=== PATIENT | female | born 1985 | race African-American/Black ===

== ENCOUNTER → 2016-06-02 | Day surgery (SDC) | payer OTHER | END | disposition home or self-care (01) | LOC: JRADIR 10:17 | PROVIDERS: ATTEND Obstetrics & Gynecology Reproductive Endocrinology | PROC: BU12YZZ Fluoroscopy of Bilateral Fallopian Tubes using Other Contrast (ICD-10-PCS; principal; 2016-06-02) | DX: N97.9 Female infertility, unspecified (principal) | CPT/HCPCS: 58340; 74740-TC; 76000-TC; 84703; Q9967 ==

== ENCOUNTER 2016-10-23 09:25 | Emergency (ER) | payer OTHER ==
[2016-10-23 09:35] VITALS: BMI 27.4
--- NOTE | 2016-10-23 10:09 | PDOC ---
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 Ahn presents with fall. The patient was looking for her dog when she slipped on the grass and hit her left knee on the ground and suddenly fell on her buttocks. Denies abdominal pain or vaginal bleeding. Sustained approximately 3 cm linear superficial laceration. Denies metal object. Believes that she received a tetanus vaccination in college. Came for evaluation. Past History - Past Medical History Allergies/Adverse Reactions: Allergies Allergy/AdvReac Type Severity Reaction Status Date / Time fish derived Allergy Intermediate Vomiting, Verified 10/23/16 09:28 hives Home Medications: Ambulatory Orders Pnv No.122/Iron/Folic Acid [ Multi Tablet] 1 each PO DAILY 10/23/16 Other medical history: 22 WKS AOG - Reproductive History Is Patient Now?: Yes (22 wks aog per patient) - Psycho/Social/Smoking Cessation Hx Anxiety: No Suicidal Ideation: No Smoking History: Never smoked Information on smoking cessation initiated: No Hx Alcohol Use: No Drug/Substance Use Hx: No Substance Use Type: None Review of Systems - Review of Systems Able to Perform ROS?: Yes Comments:: 10/23/16 10:34 GENERAL/CONSTITUTIONAL: No fever, weakness. HEAD, EYES, EARS, NOSE AND THROAT: No change in vision. No ear pain or discharge. No sore throat. CARDIOVASCULAR: No chest pain or shortness of breath. RESPIRATORY: No cough, wheezing, or hemoptysis. GASTROINTESTINAL: No abdominal pain, nausea, vomiting, diarrhea, or decreased PO intolerance. GENITOURINARY: No dysuria, frequency, or change in urination. MUSCULOSKELETAL: No joint or muscle swelling or pain. No neck or back pain. SKIN: +laceration NEUROLOGIC: No headache, vertigo, loss of consciousness, or change in strength/ sensation. ENDOCRINE: No increased thirst. No abnormal weight change. HEMATOLOGIC/LYMPHATIC: No anemia, easy bleeding, or history of blood clots. ALLERGIC/IMMUNOLOGIC: No hives or skin allergy. *Physical Exam - Vital Signs Last Vital Signs Temp Pulse Resp BP Pulse Ox 98.3 F 97 H 18 115/74 98 10/23/16 09:25 10/23/16 09:25 10/23/16 09:25 10/23/16 09:25 10/23/16 09:25 - Physical Exam Comments: 10/23/16 10:34 GENERAL: Awake, alert, and fully oriented, in no acute distress. HEAD: No signs of trauma EYES: PERRLA, EOMI, sclera anicteric, conjunctiva clear ENT: Auricles normal inspection, hearing grossly normal, nares patent, oropharynx clear without exudates. NECK: Normal ROM, supple, no lymphadenopathy, JVD, or masses LUNGS: Breath sounds equal, clear to auscultation bilaterally. No wheezes, and no crackles HEART: Regular rate and rhythm, normal S1 and S2, no murmurs, rubs or gallops ABDOMEN: +gravid. Soft, nontender, normoactive bowel sounds. No guarding, no rebound. No masses EXTREMITIES: Normal range of motion, no edema. No clubbing or cyanosis. No cords, erythema, or tenderness NEUROLOGICAL: Cranial nerves II through XII grossly intact. Normal speech, normal gait SKIN: Warm, Dry, normal turgor, no rashes or lesions noted. ~3 cm superficial linear laceration interior to the left anterior knee. No tendon exposure. Full flexion and extension of left knee. Sensation intact throughout. Procedures - Laceration/Wound Repair Left Leg Wound Length: 2.6 to 5.0 cm Wound Explored: clean Wound's Depth, Shape: superficial Irrigated w/ Saline: Yes Anesthesia: 1% Lidocaine Amount of Anesthetic (ccs): 1 Wound Debrided: minimal Wound Repaired With: Sutures Suture Size/Type: 4:0 Number of Sutures: 4 Layer Closure: No Medical Decision Making - Medical Decision Making 10/23/16 10:35 Wound was irrigated with 5 mL of sterile water. Approximate one cc of 1% lidocaine without epinephrine used for local pain control. Local anesthesia achieved. 4 4-0 nylon interrupted sutures placed with excellent approximation. Scar and wound precautions were given. Wound was covered with bacitracin and gauze. An checked patient to return to the ED or to her doctor in 7-10 days for suture removal. Patient verbalized understands plan. Given her fall and then the buttocks and greater than 20 weeks , I advised that the patient should follow with a heart monitoring. I had spoken to the nurse at labor and delivery at [place]. They are aware and will accept her for heart monitoring. The patient has no abdominal pain or vaginal bleeding. We'll have her drive the patient over to labor and delivery. Return precautions given. *DC/Admit/Observation/Transfer Diagnosis at time of Disposition: Fall Qualifiers: Encounter type: initial encounter Qualified Code(s): W19.XXXA - Unspecified fall, initial encounter - Discharge Dispostion Disposition: HOME Condition at time of disposition: Stable Admit: No - Patient Instructions Printed Discharge Instructions: DI for Laceration Repair -- Simple Additional Instructions: 10/23/16 10:06 You have 4 sutures in placed from your fall. These sutures will need to be removed in 7 to 10 days. Elevate the leg as much as you can to decrease the swelling. 650 mg tylenol every 4 hours as needed for pain. You may apply a thin layer of bacitracin every 12 hours for the next 2 to 3 days. Cover with gauze or bandage. You may return to the ER or go to your doctor for suture removal. If you notice any redness or swelling, please return to the ER for further evaluation. I had spoken with the labor and delivery at [facility]. Please go directly to the 3rd floor to labor and delivery. They are aware that you are coming for heart monitoring.
[2016-10-23 11:42] VITALS: BP 98/63; PULSE 86; TEMP 98.4
== END 2016-10-23 10:18 | disposition home or self-care (01) ==
LOC: FER 09:25
PROC: 0HQLXZZ Repair Left Lower Leg Skin, External Approach (ICD-10-PCS; principal; 2016-10-23)
DX: O26.892 Other specified pregnancy related conditions, second trimester (principal); Z3A.22 22 weeks gestation of pregnancy; S81.012A Laceration without foreign body, left knee, initial encounter; W18.30XA Fall on same level, unspecified, initial encounter; Y93.89 Activity, other specified; Y92.89 Other specified places as the place of occurrence of the external cause
CPT/HCPCS: 12002-25; 99284-25

== ENCOUNTER 2016-11-06 12:25 | Emergency (ER) | payer OTHER ==
--- NOTE | 2016-11-06 12:30 | PDOC ---
Suture Removal/Wound Check HPI - History of Present Illness Chief Complaint: Suture/Staple Removal(Here) Stated Complaint: LEFT KNEE SUTURE REMOVAL Time Seen by Provider: 11/06/16 12:30 History Source: Yes: Patient Exam Limitations: Yes: No Limitations Treated at: [facility] ED Date of Last ED visit: 10/23/16 - Previous ED Treatment Type of procedure performed on last visit: Yes: Laceration Repair Tetanus Immunization: Yes: Up to Date - Onset of Previous Treatment Date of Occurence: 10/23/16 Option to Enter number here: 14 Select one - (for the option above): Days Timing/Duration/Severity of Onset: reports: Prior to presentation Comment:: 31 yo F currently in second trimester of her presents for suture removal. She presented a few days ago to have it evaluated, but was told the wound was not healed enough yet, to wait a few more days. She denies any pain, fever, drainage from the wound. No other injuries. She has been applying neosporin. Past History - Past Medical History Allergies/Adverse Reactions: Allergies fish derived Allergy (Intermediate, Verified 11/06/16 14:18) Vomiting, hives Home Medications: Ambulatory Orders Pnv No.122/Iron/Folic Acid [ Multi Tablet] 1 each PO DAILY 10/23/16 - Social History Smoking Status: Never smoked Suture Removal/Wound Check PE - Physical Exam Comments: GENERAL: Awake, alert, and fully oriented, in no acute distress EXTREMITIES: R knee with healing laceration, sutures in place. Wound is dry and intact. No drainage. Normal range of motion, no edema. SKIN: Warm, Dry, normal turgor, no rashes or lesions noted. *Review of Systems - Review of Systems Able to Perform ROS?: Yes Comments:: GENERAL/CONSTITUTIONAL: No fever or chills. No weakness. HEAD, EYES, EARS, NOSE AND THROAT: No change in vision. No ear pain or discharge. No sore throat. MUSCULOSKELETAL: No joint or muscle swelling or pain. No neck or back pain. SKIN: No rash Procedures - Additional Procedures Additional Procedures: other Progress: Removed 4 sutures without complication. Steri-strips placed. *DC/Admit/Observation/Transfer Diagnosis at time of Disposition: Encounter for removal of sutures - Discharge Dispostion Disposition: HOME Condition at time of disposition: Stable Admit: No - Patient Instructions Printed Discharge Instructions: [facility]VA for Suture Removal
[2016-11-06 12:33] VITALS: BP 105/71; PULSE 87; TEMP 98.1; BMI 28.1
== END 2016-11-06 12:45 | disposition home or self-care (01) ==
LOC: FER 12:25
DX: Z48.02 Encounter for removal of sutures (principal)
CPT/HCPCS: 99282-25

== ENCOUNTER 2017-01-03 00:45 | Emergency (ER) | payer OTHER ==
[2017-01-03 00:54] VITALS: BP 117/77; PULSE 93; TEMP 98.5; BMI 29.9
--- NOTE | 2017-01-03 01:09 | PDOC ---
History of Present Illness - General Chief Complaint: Itching Stated Complaint: ITCHING ON HANDS AND FEET Time Seen by Provider: 01/03/17 00:54 History Source: Patient Exam Limitations: No Limitations - History of Present Illness Initial Comments: 01/03/17 01:03 This patient is a 31 yo F who is 32 weeks She presents to the ER with a complaint of itching Pt states that her hands and feet have been itching over the past 4 days She denies pain in her abdomen, vaginal bleeding She denies chest pain, shortness of breath, palpitations She has not had this prior She attempted to contact her well services operator who did not respond She has been googling Cholestasis and believes this is the cause of her No change in diet PMH: denies PSH: denies Meds: denies ALL: Fish Social: denies alcohol, drug, cigarette use GENERAL/CONSTITUTIONAL: No: fever, chills, weakness, loss of appetite. HEAD, EYES, EARS, NOSE AND THROAT: No: change in vision, ear pain, discharge, sore throat, throat swelling. CARDIOVASCULAR: No: chest pain, lightheadedness, palpitations, syncope RESPIRATORY: No: cough, shortness of breath, wheezing, hemoptysis, stridor. GASTROINTESTINAL: No: nausea, vomiting, diarrhea, abdominal cramping, rectal bleeding, constipation. GENITOURINARY: No: dysuria, hematuria, frequency, urgency, flank pain. MUSCULOSKELETAL: No: back pain, neck pain, joint pain, muscle swelling or pain SKIN : Yes: pruritis No: lesions, pallor, rash or easy bruising. NEUROLOGIC: No: headache, vertigo, paresthesias, weakness ENDOCRINE: No: unexplained weight gain or loss HEMATOLOGIC/LYMPHATIC: No: anemia, easy bleeding, swelling nodes. GENERAL: The patient is in no acute distress. HEAD: Normal with no signs of trauma. EYES: PERRLA, EOMI, sclera anicteric, conjunctiva clear. ENT: Ears normal, nares patent, oropharynx clear without exudates. Moist mucous membranes. NECK: Normal range of motion, supple without lymphadenopathy, JVD, or masses. LUNGS: Breath sounds equal, clear to auscultation bilaterally. No wheezes, and no crackles. HEART: Regular rate and rhythm, normal S1 and S2 without murmur, rub or gallop. ABDOMEN: Soft, nontender, normoactive bowel sounds. No guarding, no rebound. No masses palpable. EXTREMITIES: Normal range of motion, no edema. No clubbing or cyanosis. No erythema, or tenderness. NEUROLOGICAL: Cranial nerves II through XII grossly intact. Normal speech. No focal neurological deficits. MUSCULOSKELETAL: Back non-tender to palpation, no CVA tenderness SKIN: (+) erythema of the hands and feet due to pruritis, no lesions noted 01/03/17 01:25 01/03/17 01:28 01/03/17 02:01 Past History - Past Medical History Allergies/Adverse Reactions: Allergies Allergy/AdvReac Type Severity Reaction Status Date / Time fish derived Allergy Intermediate Vomiting, Verified 11/06/16 14:18 hives Home Medications: Ambulatory Orders Pnv No.122/Iron/Folic Acid [ Multi Tablet] 1 each PO DAILY 10/23/16 Other medical history: 32 WEEKS - Psycho/Social/Smoking Cessation Hx Anxiety: No Suicidal Ideation: No Smoking History: Never smoked Hx Alcohol Use: No Drug/Substance Use Hx: No Substance Use Type: None *Physical Exam - Vital Signs Last Vital Signs Temp Pulse Resp BP Pulse Ox 98.5 F 93 H 18 117/77 99 01/03/17 00:51 01/03/17 00:51 01/03/17 00:51 01/03/17 00:51 01/03/17 00:51 ED Treatment Course - LABORATORY CBC & Chemistry Diagram: 01/03/17 01:15 01/03/17 01:15 Medical Decision Making - Medical Decision Making 01/03/17 01:29 Will do labs Will attempt to contact well services operator 01/03/17 02:02 Pt vitals: Selected Entries 01/03/17 00:51 Temperature 98.5 F Pulse Rate 93 H Respiratory 18 Rate Blood Pressure 117/77 O2 Sat by Pulse 99 Oximetry (%) 01/03/17 02:02 01/03/17 02:22 Laboratory Tests 01/03/17 01:15 WBC 11.3 H Hgb 12.6 Hct 37.2 Plt Count 180 01/03/17 02:34 Laboratory Tests 01/03/17 00:51 Urine Blood Negative Urine Nitrite Negative Ur Leukocyte Esterase Negative 01/03/17 02:57 Laboratory Tests 01/03/17 01:15 Sodium 137 Potassium 3.6 Chloride 101 Carbon Dioxide 25 Anion Gap 11 BUN 10 Creatinine 0.7 Random Glucose 93 Total Bilirubin 0.2 AST 19 ALT 27 Alkaline Phosphatase 98 Albumin 2.9 L 01/03/17 02:[address] Ahn 01/03/17 03:31 No response Pt would like to go home Will discharge to home *DC/Admit/Observation/Transfer Diagnosis at time of Disposition: Itching - Discharge Dispostion Disposition: HOME Condition at time of disposition: Stable Admit: No - Referrals Referrals: Yosef Ahn MD [Primary Care Provider] - - Patient Instructions Printed Discharge Instructions: DI for Itching Additional Instructions: Thank you for coming in to the ER Please follow up with your primary well services operator I have attempted to reach him but I did not receive a call back Please return to the ER for any other concerns or complaints
[2017-01-03 02:19] LABS: BASOPHIL 0.3 % (0-2.0); EOSINOPHIL 2.5 % (0-4.5); MCH 31.5 pg (25.7-33.7); MCHC 33.9 g/dl (32.0-36.0); MEAN CELL VOLUME 92.9 fl (80-96); NEUTROPHILS 64.7 % (42.8-82.8); PLATELET COUNT 180 K/MM3 (134-434); RDW 13.1 % (11.6-15.6); WHITE BLOOD COUNT 11.3 K/mm3 (4.0-10.0)
[2017-01-03 02:23] LABS: URINE APPEARANCE CLOUDY; URINE BILIRUBIN NEGATIVE (NEGATIVE); URINE BLOOD NEGATIVE (NEGATIVE); URINE COLOR LTYELLOW; URINE GLUCOSE (UA) NEGATIVE (NEGATIVE); URINE KETONE NEGATIVE (NEGATIVE); URINE LEUK ESTERASE NEGATIVE (NEGATIVE); URINE NITRITE NEGATIVE (NEGATIVE); URINE PROTEIN NEGATIVE (NEGATIVE); URINE UROBILINOGEN NEGATIVE mg/dL (0.2-1.0)
[2017-01-03 02:47] LABS: ALBUMIN 2.9 g/dl (3.4-5.0); ANION GAP 11 (8-16); BILIRUBIN,TOTAL 0.2 mg/dL (0.2-1.0); CALCIUM 9.2 mg/dL (8.5-10.1); CO2 25 mmol/L (21-32); CREATININE 0.7 mg/dL (0.55-1.02); GLUCOSE,RANDOM 93 mg/dL (74-106); SGOT/AST 19 U/L (15-37); SGPT/ALT 27 U/L (12-78); TOT PROT 6.4 g/dl (6.4-8.2)
[2017-01-03 02:48] LABS: ALK PHOS 98 U/L (45-117)
--- NOTE | 2017-03-03 16:57 | PATH ---
Surgical Pathology Report Patient Name: LEANN ALEXANDER Med. Rec. #: [id number] /Age/Gender: 1985 (Age: 31) / F Account: [id number] Location: [facility] R Taken: 02/23/2017 Received: 02/24/2017 Reported: 03/03/2017 Physicians: Yosef Ahn M.D. Specimen(s) Received PLACENTA Clinical History , 39.4 weeks transverse lie, primary IA x2 Final Diagnosis PLACENTA, PRIMARY SECTION: THIRD TRIMESTER PLACENTA (502 g) WITH TRIVASCULAR UMBILICAL CORD AND UNREMARKABLE PLACENTAL MEMBRANES. Electronically Signed Alla Bay M.D. Gross Description The specimen is received fresh labeled placenta and is a 502 gram, 20.0 x 19.0 x 2.2 cm. placenta with attached membranes and umbilical cord. The attached membranes are ramirez, translucent with focal opacities and insert marginally. The umbilical cord measures 30 cm. in length and averages 1.4 cm. in diameter. The cord inserts centrally. No true knots or strictures are identified. Cut surface of the umbilical cord reveals 3 vessels. The surface is oleary-blue with minimal fibrin deposition and appropriate caliber vessels. The maternal surface is red-brown with focal defects. Sectioning reveals red-brown, spongy parenchyma. No lesions are identified. Brick Mason sections are submitted in three cassettes as follows: 1- membrane rolls and umbilical cord; 2-3- full thickness sections of placenta. 02/26/2017 [facility]02/26/2017
== END 2017-01-03 03:36 | disposition home or self-care (01) ==
LOC: FER 00:45
DX: O26.893 Other specified pregnancy related conditions, third trimester (principal); L29.9 Pruritus, unspecified; Z3A.32 32 weeks gestation of pregnancy
CPT/HCPCS: 36415; 80053; 81003; 85025; 87086; 88307-TC; 99281-25

== ENCOUNTER 2017-02-23 07:35 | Inpatient (IN) | payer OTHER ==
[~2017-02-23 07:35] MED LIST: CITRIC ACID/SODIUM CITRATE 30 ML UNIT-DOSE CUP PO ONE; ELECTROLYTE-148 SOLN 1,000 ML IV SCH
[2017-02-23] MEDS ORDERED: ELECTROLYTE-148 SOLN 1,000 ML IV SCH (08:05)
[2017-02-23 08:25] VITALS: BMI 32.9
[2017-02-23] MEDS ORDERED: TUBERCULIN PPD 5 TU/0.1ML SYRINGE (IN PATIENT USE ONLY) ID ONE (09:00)
--- NOTE | 2017-02-23 09:20 | HP ---
Past Medical History - Primary Care Physician PCP:: Yosef Ahn - Admission Chief Complaint: 39 weeks, transverse lie, for c/s History of Present Illness: 31 yo f 39 weeks, with hx of transverse lie confirmed by bed side sono for c/s, rba discussed, fhr cat 1, cx clp History Source: Patient Limitations to Obtaining History: No Limitations - Past Medical History ...: 3 ...Para: 0 ...Term: 0 ...: 0 ...Spon : 0 ...Induced : 0 ...Multiple Gestation: 0 ...LMP: 05/24/16 ... Weeks Gestation by Dates: 39.2 ...EDC by Dates: 02/28/17 ...EDC by Sono: 02/26/17 - Past Surgical History Hx Myomectomy: No Hx Transabdominal Cerclage: No - Smoking History Smoking history: Never smoked Have you smoked in the past 12 months: No - Alcohol/Substance Use Hx Alcohol Use: No - Social History Usual Living Arrangement: Yes: With Spouse History of Recent Travel: No Home Medications - Allergies Allergies/Adverse Reactions: Allergies Allergy/AdvReac Type Severity Reaction Status Date / Time fish derived Allergy Intermediate Vomiting, Verified 11/06/16 14:18 hives No Known Drug Allergies Allergy Verified 02/23/17 08:14 - Home Medications Home Medications: Ambulatory Orders Pnv No.122/Iron/Folic Acid [ Multi Tablet] 1 each PO DAILY 10/23/16 Review of Systems - Review of Systems Constitutional: reports: No Symptoms Eyes: reports: No Symptoms HENT: reports: No Symptoms Neck: reports: No Symptoms Cardiovascular: reports: No Symptoms Respiratory: reports: No Symptoms Gastrointestinal: reports: No Symptoms Genitourinary: reports: No Symptoms Breasts: reports: No Symptoms Reported Musculoskeletal: reports: No Symptoms Integumentary: reports: No Symptoms Neurological: reports: No Symptoms Endocrine: reports: No Symptoms Hematology/Lymphatic: reports: No Symptoms Psychiatric: reports: No Symptoms Physical Exam - Maternity Vital Signs: Vital Signs Temperature 98.1 F 02/23/17 07:35 Pulse Rate 90 02/23/17 07:35 Respiratory Rate 18 02/23/17 07:35 Blood Pressure 122/65 02/23/17 07:35 O2 Sat by Pulse Oximetry (%) Constitutional: Yes: Well Nourished, No Distress, Calm Eyes: Yes: WNL, Conjunctiva Clear, EOM Intact HENT: Yes: WNL, Atraumatic, Normocephalic Neck: Yes: WNL, Supple, Trachea Midline Cardiovascular: Yes: WNL, Regular Rate and Rhythm Breast(s): Yes: WNL - Abdominal Exam/OB Fundal Height: 38 Number of Fetuses: Single Presentation: Vertex Contractions: Yes Regularity: Irritability Intensity: Unaware Heart Rate Location: RUQ Category: I Accelerations: Uniform Decelerations: None - Vaginal Exam/OB Vaginal Bleediing: No Speculum Exam: No Dilatation (cm): closed Effacement (%): 0 Amniotic Membrane Status: Intact Station: -4 - Physical Exam Musculoskeletal: Yes: Back Pain Edema: Yes Edema: LLE: Trace, RLE: Trace Deep Tendon Reflex Grade: Normal +2 Psychiatric: Yes: WNL Hemorrhage Risk Assessment - Risk Factors Medium Risk Factors: Yes: None High Risk Factors: Yes: None Risk Score: 1 Risk Level: Medium Risk Problem List - Problems (1) with 39 completed weeks gestation Code(s): Z3A.39 - 39 WEEKS GESTATION OF (2) Transverse lie, antepartum Code(s): O32.2XX0 - MATERNAL CARE FOR TRANSVERSE AND OBLIQUE LIE, UNSP Qualifiers: Fetus number: single or unspecified fetus Qualified Code(s): O32.2XX0 - Maternal care for transverse and oblique lie, not applicable or unspecified; O32.2XX0 - Maternal care for transverse and oblique lie, not applicable or unspecified Assessment/Plan c/s , rba discussed
[2017-02-23] MEDS ORDERED: ONDANSETRON 4 MG/2 ML VIAL IVPB PRN (09:27)
[2017-02-23] MEDS ORDERED: oxyCODONE HCL 5 MG TABLET PO PRN (10:24)
[2017-02-23] MEDS ORDERED: diphenhydrAMINE HCL 25 MG CAPSULE (FP) PO PRN (10:24)
[2017-02-23] MEDS ORDERED: WITCH HAZEL 50% (TUCKS) 40 PAD/JAR PAD TP PRN (10:24)
[2017-02-23] MEDS ORDERED: BENZOCAINE 20% 57 GM BOTTLE TP PRN (10:24)
[2017-02-23] MEDS ORDERED: BENZOCAINE 28 GM HEMORRHOIDAL OINTMENT PR PRN (10:24)
[2017-02-23] MEDS ORDERED: METHYLERGONOVINE MALEATE 0.2 MG/1 ML AMP IM PRN (10:24)
[2017-02-23] MEDS ORDERED: IBUPROFEN 600 MG TABLET (FP) PO PRN (10:24)
[2017-02-23] MEDS ORDERED: OXYTOCIN 20 UNITS in 0.9% NS 1,000 ML IV SCH (10:30)
[2017-02-23] MEDS: ACETAMINOPHEN 1000 MG/100 ML VIAL (NON FORMULARY) IVPB PRN ×2 (10:50→20:54)
[2017-02-23] MEDS ORDERED: MEPERIDINE HCL CARPU-JECT 50 MG/1 ML DISP.SYRIN IVPUSH PRN (11:13)
[2017-02-23] MEDS ORDERED: IBUPROFEN 800 MG/8 ML IJ IVPB ONE (11:13)
[2017-02-23] MEDS: IBUPROFEN 800 MG/8 ML IJ IVPB PRN ×2 (11:15→16:48)
[2017-02-23] MEDS ORDERED: morphine CARPU-JECT 2 MG/1 ML DISP.SYRIN IVPB ONE (14:45)
[2017-02-23] MEDS ORDERED: DEXTROSE 5%-WATER - 50 ML IVPB ONE (18:03)
[2017-02-23] MEDS ORDERED: ceFAZolin SODIUM 1 GM VIAL ONE (18:03)
[2017-02-23] MEDS: CEFAZOLIN 1 GM in DEXTROSE 5%-WATER - 50 ML IVPB SCH (18:11)
[2017-02-23] MEDS ORDERED: DEXTROSE 5%-LACTATED RINGERS 1,000 ML IV SCH (18:30)
--- NOTE | 2017-02-23 21:06 | OP ---
DATE OF OPERATION: 02/23/2017 PREOPERATIVE DIAGNOSIS: at 39 weeks, transverse lay. POSTOPERATIVE DIAGNOSIS: at 39 weeks, transverse lay. PROCEDURE: Primary low segment transverse section. SURGEON: Yosef Nowak MD WINDROWER OPERATOR: Derek Booker MD ANESTHESIA: Spinal anesthesia. ANESTHESIOLOGIST: Jose Madison MD ESTIMATED BLOOD LOSS: 700 mL. FINDINGS: Live baby boy. 's 9 and 9. Right shoulder anterior. Delivered at the vertex. OPERATION: The patient was taken to the operating room and underwent spinal anesthesia. Abdomen and perineum were prepped and draped. Pfannenstiel abdominal skin incision was made. Abdominal wall was cut layer by layer. Anterior peritoneum was exposed and incised. At that point in the abdominal cavity, the lower uterine segment was identified and uterovesical was followed along the peritoneum and the bladder was pushed down. With the lower blade of the retractor placed in the pelvis, a low transverse incision was made. Incision was extended laterally. Amniotic sac was entered. Clear fluid. Baby was in transverse position with head to the right of the mother, which was rotated and delivered at the vertex. Live baby boy was delivered without any difficulty. Placenta was delivered manually. Uterine cavity was cleaned of all remaining tissue. Uterine incision was closed in 2 layers; first layer with 0 Biosyn continuous suture and the 2nd layer with 0 Biosyn imbricating the first layer. Bladder flap was closed with 0 Biosyn continuous suture. There were several areas of bleeding at the incision site, which hemostasis was established with [id number] Biosyn suture. Both tubes and ovaries were normal. Pelvic cavity was several times irrigated and then all of the lap, sponge, and instrument counts were correct. The peritoneum was closed with 0 Biosyn continuous suture. Muscles were brought together with interrupted sutures of 0 Biosyn. Fascia was closed with 0 Biosyn continuous sutures, subcutaneous fat with interrupted suture of 0 Biosyn, and the skin was closed with 3-0 Vicryl subcuticular suture. Patient tolerated the procedure well and left the OR in good condition. YOSEF NOWAK M.D. [id number]
[2017-02-24] MEDS ORDERED: ceFAZolin SODIUM 1 GM VIAL ONE (01:18)
[2017-02-24] MEDS ORDERED: DEXTROSE 5%-WATER - 50 ML IVPB ONE (01:18)
[2017-02-24] MEDS: CEFAZOLIN 1 GM in DEXTROSE 5%-WATER - 50 ML IVPB SCH (01:23)
[2017-02-24] MEDS: ACETAMINOPHEN 325 MG TABLET (FP) PO PRN ×4 (01:50→21:29)
[2017-02-24] MEDS: IBUPROFEN 600 MG TABLET (FP) PO PRN ×5 (01:50→21:28)
--- NOTE | 2017-02-24 08:31 | PN ---
Post Progress Note - Subjective Subjective: Pt complaints of mild incision pain Post Day: 1 Type of Delivery: Primary C/S Vital Signs: Vital Signs Temperature 98.9 F 02/24/17 06:00 Pulse Rate 87 02/24/17 06:00 Respiratory Rate 18 02/24/17 06:00 Blood Pressure 109/61 02/24/17 06:00 O2 Sat by Pulse Oximetry (%) 100 02/23/17 11:25 Breast Exam: Yes: Soft Uterus: Yes: Fundus Firm, Fundus below umbilicus Incision: Yes: Dressing dry and intact Abdomen/GI: Yes: Abdomen soft, Tolerating PO Lochia: Yes: Rubra Lochia, amount: Small Extremities: Yes: Calves non-tender Perineum: Yes: Intact Activity: Ambulating Assessment/Plan 31yo P1 s/p primary LT C/S, doing well stable, afebrile. care instructions reviewed. Continue routine postop care. Ambulation encouraged
[2017-02-24 08:54] LABS: BASOPHIL 0.4 % (0-2.0); EOSINOPHIL 0.9 % (0-4.5); MCH 30.3 pg (25.7-33.7); MCHC 32.4 g/dl (32.0-36.0); MEAN CELL VOLUME 93.6 fl (80-96); MEAN PLT VOLUME 10.8 fl (7.5-11.1); NEUTROPHILS 76.5 % (42.8-82.8); PLATELET COUNT 117 K/MM3 (134-434); RDW 13.9 % (11.6-15.6); WHITE BLOOD COUNT 10.5 K/mm3 (4.0-10.0)
[2017-02-24] MEDS ORDERED: BISACODYL 10 MG SUPP.RECT RC PRN (10:24)
--- NOTE | 2017-02-24 10:36 | PN ---
Progress Note (short form) - Note Progress Note: POD #1 - s/p under spinal anesthesia with duramorph. Pt. doing well, resting comfortably in bed and baby. No complaints. Good pain control. No apparent anesthetic complications noted. Continue current care.
[2017-02-24] MEDS: SIMETHICONE 80 MG TAB.CHEW (FP) PO PRN ×3 (10:46→21:20)
[2017-02-24] MEDS: oxyCODONE HCL 5 MG TABLET PO PRN ×2 (10:46→21:22)
[2017-02-24] MEDS: ENOXAPARIN NA (PORCINE) 40 MG/0.4 ML DISP.SYRIN SQ SCH (10:48)
[2017-02-24] MEDS: SENNOSIDES/DOCUSATE COMBO (SENNA PLUS) TABLET (UD) PO PRN (21:29)
[2017-02-25] MEDS: SIMETHICONE 80 MG TAB.CHEW (FP) PO PRN ×4 (06:24→23:28)
[2017-02-25] MEDS: ACETAMINOPHEN 325 MG TABLET (FP) PO PRN ×2 (06:24→23:27)
[2017-02-25] MEDS: IBUPROFEN 600 MG TABLET (FP) PO PRN ×4 (06:27→23:26)
--- NOTE | 2017-02-25 07:08 | PN ---
Post Progress Note - Subjective Subjective: Patient without acute complaints. Reports tolerating oral intake without nausea or vomiting. Ambulating without dizziness. Denies fevers or chills. Pain well controlled with oral pain medication. without difficulty. Passing flatus. Post Day: 3 Type of Delivery: Primary C/S Vital Signs: Vital Signs Temperature 98.3 F 02/24/17 22:00 Pulse Rate 86 02/24/17 22:00 Respiratory Rate 18 02/24/17 22:00 Blood Pressure 124/70 02/24/17 22:00 O2 Sat by Pulse Oximetry (%) 100 02/23/17 11:25 Breast Exam: Yes: Soft Uterus: Yes: Fundus Firm, Fundus below umbilicus Abdomen/GI: Yes: Abdomen soft, Passing flatus, Tolerating PO. No: Tender Lochia: Yes: Serosa Lochia, amount: Small Extremities: Yes: Calves non-tender Activity: Ambulating - Labs Labs: CBC WBC 10.5 K/mm3 (4.0-10.0) H D 02/24/17 08:30 RBC 3.55 M/mm3 (3.60-5.2) L 02/24/17 08:30 Hgb 10.8 GM/dL (10.7-15.3) D 02/24/17 08:30 Hct 33.2 % (32.4-45.2) 02/24/17 08:30 MCV 93.6 fl (80-96) 02/24/17 08:30 MCH 30.3 pg (25.7-33.7) 02/24/17 08:30 MCHC 32.4 g/dl (32.0-36.0) 02/24/17 08:30 RDW 13.9 % (11.6-15.6) 02/24/17 08:30 Plt Count 117 K/MM3 (134-434) L 02/24/17 08:30 MPV 10.8 fl (7.5-11.1) D 02/24/17 08:30 Neutrophils % 76.5 % (42.8-82.8) D 02/24/17 08:30 Lymphocytes % 16.0 % (8-40) D 02/24/17 08:30 Monocytes % 6.2 % (3.8-10.2) 02/24/17 08:30 Eosinophils % 0.9 % (0-4.5) 02/24/17 08:30 Basophils % 0.4 % (0-2.0) 02/24/17 08:30 Assessment/Plan 31 yo POD # 2 s/p 1 CD, afebrile, vital sign stable, doing well 1. Continue routine postoperative care. 2. Encourage ambulation and incentive spirometer use 3. Continue oral pain medication 4. Anticipate discharge home postoperative day #3 or #4
[2017-02-25] MEDS: oxyCODONE HCL 5 MG TABLET PO PRN ×3 (08:08→17:31)
[2017-02-25] MEDS: ENOXAPARIN NA (PORCINE) 40 MG/0.4 ML DISP.SYRIN SQ SCH (09:15)
[2017-02-25] MEDS ORDERED: DIPHTH,PERTUSS(ACELL),TET 0.5 ML DISP.SYRIN IM ONE (10:00)
[2017-02-25] MEDS ORDERED: FLU VACC QS2017-18 36MOS UP/PF 60 MCG/0.5 ML SYRINGE IM ONE (10:00)
[2017-02-25] MEDS: SENNOSIDES/DOCUSATE COMBO (SENNA PLUS) TABLET (UD) PO PRN (23:28)
[2017-02-26] MEDS: IBUPROFEN 600 MG TABLET (FP) PO PRN ×2 (05:14→10:05)
[2017-02-26] MEDS: ACETAMINOPHEN 325 MG TABLET (FP) PO PRN ×2 (05:15→10:05)
[2017-02-26] MEDS: oxyCODONE HCL 5 MG TABLET PO PRN (05:16)
[2017-02-26] MEDS: SIMETHICONE 80 MG TAB.CHEW (FP) PO PRN ×2 (05:16→10:06)
[2017-02-26 07:36] LABS: BASOPHIL 0.6 % (0-2.0); EOSINOPHIL 3.3 % (0-4.5); MCH 31.1 pg (25.7-33.7); MCHC 33.3 g/dl (32.0-36.0); MEAN CELL VOLUME 93.4 fl (80-96); NEUTROPHILS 69.5 % (42.8-82.8); PLATELET COUNT 147 K/MM3 (134-434); WHITE BLOOD COUNT 9.4 K/mm3 (4.0-10.0)
--- NOTE | 2017-02-26 08:23 | PN ---
Progress Note (short form) - Note Progress Note: pod 3 c/o incisional pain, no excess vaginal bleeding , had BM CBC, BMP 02/26/17 06:00 Last Vital Signs Temp Pulse Resp BP Pulse Ox 97.6 F 87 18 116/60 100 02/25/17 22:00 02/25/17 22:00 02/25/17 22:00 02/25/17 22:00 02/23/17 11:25 abdomen soft, no distension , no cva , incision dry, clean , sutures intact no calf tenderness lochia mild plan pain management, ambulate Problem List - Problems (1) with 39 completed weeks gestation Code(s): Z3A.39 - 39 WEEKS GESTATION OF (2) Transverse lie, antepartum Code(s): O32.2XX0 - MATERNAL CARE FOR TRANSVERSE AND OBLIQUE LIE, UNSP Qualifiers: Fetus number: single or unspecified fetus Qualified Code(s): O32.2XX0 - Maternal care for transverse and oblique lie, not applicable or unspecified; O32.2XX0 - Maternal care for transverse and oblique lie, not applicable or unspecified
[2017-02-26] MEDS: ENOXAPARIN NA (PORCINE) 40 MG/0.4 ML DISP.SYRIN SQ SCH (10:06)
[2017-02-26 10:42] VITALS: BP 122/76; PULSE 89; TEMP 98.1
--- NOTE | 2017-03-02 08:54 | DS ---
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: Vital Signs Temperature 98.1 F 02/26/17 10:00 Pulse Rate 89 02/26/17 10:00 Respiratory Rate 18 02/26/17 10:00 Blood Pressure 122/76 02/26/17 10:00 O2 Sat by Pulse Oximetry (%) 100 02/23/17 11:25 Constitutional: Yes: Well Nourished, No Distress, Calm Eyes: Yes: WNL, Conjunctiva Clear, EOM Intact HENT: Yes: WNL, Atraumatic, Normocephalic Neck: Yes: WNL, Supple, Trachea Midline Cardiovascular: Yes: WNL, Regular Rate and Rhythm Respiratory: Yes: WNL, Regular, CTA Bilaterally Gastrointestinal: Yes: WNL ...Rectal Exam: Yes: WNL Renal/: Yes: WNL ....Post : Yes: Uterus firm, Uterus non-tender, Slight lochia rubra Breast(s): Yes: WNL Musculoskeletal: Yes: WNL Extremities: Yes: WNL Edema: LLE: Trace, RLE: Trace Integumentary: Yes: WNL Wound/Incision: Yes: Clean/Dry, Well Approximated, Sutures Intact Neurological: Yes: WNL, Alert, Oriented ...Motor Strength: WNL Psychiatric: Yes: WNL, Alert, Oriented Labs: CBC, BMP 02/26/17 06:00 Delivery - Delivery Section: Primary (no complication), Low Flap Transverse Type of Anesthesia: Spinal Episiotomy/Laceration: None EBL (cc): 700 Delivery, Single - Stages of Labor Date of Delivery: 02/23/17 Time of Delivery: 09:40 Time Placenta Delivered: 09:42 Placenta: Yes: Manual Removal - Condition of Infant 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 Present: Yes Name: Elba Lopez Gender: Male Weight: 8 lb 13 oz Position: Right, SA Total Hours ROM (Hrs/Mins): 3MIN - 1 Minute Total Score: 9 5 Minutes Total Score: 9 - [place] Feeding Plan Initial Plan: Exclusive throughout hospitalization Discharge Summary Reason For Visit: CSECTION transverse lie Procedures: Principal: primary LST c/s Condition: Good - Instructions Diet, Activity, Other Instructions: regular diet, follow up office 1 week Referrals: Yosef Ahn MD [Staff Physician] - Disposition: HOME - Home Medications Comprehensive Discharge Medication List: Ambulatory Orders Pnv No.122/Iron/Folic Acid [ Multi Tablet] 1 each PO DAILY 10/23/16 Ibuprofen [Motrin -] 600 mg PO QID #28 tablet 02/26/17
== END 2017-02-26 14:10 | disposition home or self-care (01) | DRG 540 ==
LOC: JLDR 07:35 → J3W 11:58
PROVIDERS: ADMIT Obstetrics & Gynecology; ATTEND Obstetrics & Gynecology
PROC: 10D00Z1 Extraction of Products of Conception, Low, Open Approach (ICD-10-PCS; principal; 2017-02-23)
DX: O32.2XX0 Maternal care for transverse and oblique lie, not applicable or unspecified (principal); Z3A.39 39 weeks gestation of pregnancy; Z37.0 Single live birth
CPT/HCPCS: 36415; 85025; 88307-TC; 90686; 90715; G0008

== ENCOUNTER 2018-01-28 05:37 | Day surgery (SDC) | payer OTHER ==
[2018-01-27 11:37] VITALS: BMI 25.5
--- NOTE | 2018-01-28 07:21 | HP ---
Past Medical History - Primary Care Physician PCP:: Yosef Ahn - Admission Chief Complaint: missed History of Present Illness: 32 yo f with 8 weeks iup, missed admitted for suction D&C ,risks discussed with patient History Source: Patient Limitations to Obtaining History: No Limitations - Past Surgical History Hx Myomectomy: No Hx Transabdominal Cerclage: No - Smoking History Smoking history: Former smoker Have you smoked in the past 12 months: No - Alcohol/Substance Use Hx Alcohol Use: Yes (1 glass of wine per day) - Social History Usual Living Arrangement: Yes: With Spouse History of Recent Travel: No Home Medications - Allergies Allergies/Adverse Reactions: Allergies Allergy/AdvReac Type Severity Reaction Status Date / Time fish derived Allergy Intermediate Vomiting, Verified 01/28/18 07:12 hives No Known Drug Allergies Allergy Verified 01/28/18 07:12 - Home Medications Home Medications: Ambulatory Orders NK [No Known Home Medication] 01/27/18 Review of Systems - Review of Systems Constitutional: reports: No Symptoms Eyes: reports: No Symptoms HENT: reports: No Symptoms Neck: reports: No Symptoms Cardiovascular: reports: No Symptoms Respiratory: reports: No Symptoms Gastrointestinal: reports: No Symptoms Genitourinary: reports: No Symptoms Musculoskeletal: reports: No Symptoms Integumentary: reports: No Symptoms Neurological: reports: No Symptoms Endocrine: reports: No Symptoms Hematology/Lymphatic: reports: No Symptoms Psychiatric: reports: No Symptoms 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 Vital Signs: Vital Signs Temperature Pulse Rate Respiratory Rate Blood Pressure O2 Sat by Pulse Oximetry (%) 99 01/28/18 06:56 Constitutional: Yes: Well Nourished, No Distress, Calm Eyes: Yes: WNL, Conjunctiva Clear, EOM Intact HENT: Yes: WNL, Atraumatic, Normocephalic Neck: Yes: WNL, Supple, Trachea Midline Cardiovascular: Yes: WNL, Regular Rate and Rhythm Respiratory: Yes: WNL, Regular, CTA Bilaterally Gastrointestinal: Yes: WNL ...Rectal Exam: Yes: WNL Renal/: Yes: WNL Pelvis: Yes: WNL External Genitalia: Yes: Normal Vaginal Exam: Yes: Normal Cervix: Yes: Normal Uterus: Yes: Enlarged, Soft (8 weeks) Breast(s): Yes: WNL Musculoskeletal: Yes: WNL Extremities: Yes: WNL Edema: No Integumentary: Yes: WNL Neurological: Yes: WNL, Alert, Oriented ...Motor Strength: WNL Psychiatric: Yes: WNL, Alert, Oriented Problem List - Problem (1) with 8 completed weeks gestation Code(s): Z3A.08 - 8 WEEKS GESTATION OF (2) Missed Code(s): O02.1 - MISSED Assessment/Plan suction curettage, D&C
[2018-01-28] MEDS ORDERED: DEXAMETHASONE SOD PHOSPHATE 4 MG/1 ML VIAL ONE (07:31)
[2018-01-28] MEDS ORDERED: LIDOCAINE HCL/PF 2% SDV 5ML VIAL ONE (07:31)
[2018-01-28] MEDS ORDERED: PROPOFOL 20 ML ONE ×2 (07:34→08:02)
[2018-01-28] MEDS ORDERED: MIDAZOLAM HCL 2 MG/2 ML SINGLE DOSE VIAL ONE (07:35)
[2018-01-28] MEDS ORDERED: SUCCINYLCHOLINE CHLORIDE 200 MG/10 ML VIAL ONE (07:36)
[2018-01-28] MEDS ORDERED: oxyCODONE HCL 5 MG TABLET PO PRN ×3 (07:44→08:11)
[2018-01-28] MEDS ORDERED: ONDANSETRON 4 MG/2 ML VIAL IVPUSH PRN ×2 (07:44→08:11)
[2018-01-28] MEDS ORDERED: LACTATED RINGERS SOLUTION 1,000 ML IV SCH (07:45)
[2018-01-28] MEDS ORDERED: IBUPROFEN 800 MG/8 ML IJ IVPB PRN (08:11)
[2018-01-28] MEDS ORDERED: IBUPROFEN 600 MG TABLET (FP) PO PRN (08:11)
[2018-01-28] MEDS ORDERED: ELECTROLYTE-148 SOLN 1,000 ML IV SCH (08:15)
[2018-01-28 17:13] VITALS: BP 122/70; PULSE 75; TEMP 97.8
--- NOTE | 2018-01-31 17:12 | PATH ---
Surgical Pathology Report Patient Name: LEANN ALEXANDER [facility]. Rec. #: [id number] /Age/Gender: 1985 (Age: 32) / F Account: [id number] Location: [facility] [facility] Taken: 01/28/2018 Received: 01/28/2018 Reported: 01/31/2018 Physicians: Yosef Ahn M.D. Specimen(s) Received PRODUCTS OF CONCEPTION Clinical History Missed Final Diagnosis PRODUCTS OF CONCEPTION, SUCTION DILATION AND CURETTAGE: CHORIONIC VILLI PRESENT, CONSISTENT WITH PRODUCTS OF CONCEPTION. Electronically Signed Anabela Pearce M.D. Gross Description Received in formalin labeled "products of conception," is a 7.0 x 5.0 x 1.2 cm aggregate of ramirez-brown soft tissue fragments. Villous tissue is identified. No somatic tissue is identified. A compliance representative portion is submitted in one cassette. /01/28/2018 [place]01/28/2018
--- NOTE | 2018-02-01 10:14 | OP ---
DATE OF OPERATION: 01/28/2018 PREOPERATIVE DIAGNOSIS: at 8 weeks, missed . POSTOPERATIVE DIAGNOSIS: at 8 weeks, missed . PROCEDURE: Suction dilatation and curettage. SURGEON: Yosef Ahn MD ANESTHESIA: General. ESTIMATED BLOOD LOSS: 50 mL DESCRIPTION OF OPERATION: The patient was taken to the operating room, and adequate general anesthesia induced position. Examination under anesthesia revealed the external genitalia to be normal. Vagina was normal. Cervix was closed. Uterus was 8 weeks' size, soft. Adnexa: No masses were palpable. Then, with a weighted speculum in the vagina, anterior lip of the cervix was grasped with a single-tooth tenaculum, and cervix was dilated with Hegar dilators. Then, a suction curette, size 8, was inserted into the uterine cavity, and the contents were suctioned. Patient tolerated the procedure well, left the OR in good condition. At the end of the procedure, no active bleeding was seen. Kuldip [id number]
== END 2018-01-28 17:00 | disposition home or self-care (01) ==
LOC: JASU-SURG 05:37
PROVIDERS: ATTEND Obstetrics & Gynecology
PROC: 10D17ZZ Extraction of Products of Conception, Retained, Via Natural or Artificial Opening (ICD-10-PCS; principal; 2018-01-28 07:30)
DX: O02.1 Missed abortion (principal); Z3A.08 8 weeks gestation of pregnancy
CPT/HCPCS: 88305-TC; 94760

== ENCOUNTER 2020-01-23 06:00 | Inpatient (IN) | payer OTHER ==
[2020-01-23] MEDS: ELECTROLYTE-148 SOLN 1,000 ML IV SCH (06:30)
[2020-01-23] MEDS ORDERED: CITRIC ACID/SODIUM CITRATE 30 ML UNIT-DOSE CUP PO ONE (07:18)
[2020-01-23 07:20] VITALS: BMI 28.1
--- NOTE | 2020-01-23 07:20 | HP ---
Past Medical History - Primary Care Physician PCP:: Yosef Ahn - Admission Chief Complaint: 39 weeks, previous c/s , transverse lie History of Present Illness: 34 yo f g 5 [id number] 39 weeks, with previous c/s and transverse lie admitted for re peat c/s, risks associated with repeat c/s explained to patient, fhr cat 11, cx clp, no contraction History Source: Patient Limitations to Obtaining History: No Limitations - Past Medical History ...: 5 ...Para: 1 ...Term: 1 ...Spon : 3 ... Weeks Gestation by Dates: 39 ...EDC by Sono: 01/30/20 Musculoskeletal: Yes: Other (hx of club foot with corrective surgery) - Past Surgical History Past Surgical History: Yes: Hx Myomectomy: No Hx Transabdominal Cerclage: No - Smoking History Smoking history: Former smoker Have you smoked in the past 12 months: No - Alcohol/Substance Use Hx Alcohol Use: Yes (1 glass of wine per day) - Social History Usual Living Arrangement: Yes: With Spouse History of Recent Travel: No Home Medications - Allergies Allergies/Adverse Reactions: Allergies Allergy/AdvReac Type Severity Reaction Status Date / Time fish derived Allergy Intermediate Vomiting, Verified 01/23/20 07:15 hives No Known Drug Allergies Allergy Verified 01/23/20 07:15 - Home Medications Home Medications: Ambulatory Orders Pnv No.95/Ferrous Fum/Folic AC [ Formula] 1 each PO DAILY 01/23/20 Review of Systems - Review of Systems Constitutional: reports: No Symptoms Eyes: reports: No Symptoms HENT: reports: No Symptoms Neck: reports: No Symptoms Cardiovascular: reports: No Symptoms Respiratory: reports: No Symptoms Gastrointestinal: reports: No Symptoms Genitourinary: reports: No Symptoms Breasts: reports: No Symptoms Reported Musculoskeletal: reports: No Symptoms Integumentary: reports: No Symptoms Neurological: reports: No Symptoms Endocrine: reports: No Symptoms Hematology/Lymphatic: reports: No Symptoms Psychiatric: reports: No Symptoms Physical Exam - Maternity Vital Signs: Vital Signs Temperature 98.8 F 01/23/20 06:20 Pulse Rate 94 H 01/23/20 06:20 Respiratory Rate 20 01/23/20 06:20 Blood Pressure 112/59 L 01/23/20 06:20 O2 Sat by Pulse Oximetry (%) Constitutional: Yes: Well Nourished, No Distress, Calm Eyes: Yes: WNL, Conjunctiva Clear, EOM Intact HENT: Yes: WNL, Atraumatic, Normocephalic Neck: Yes: WNL, Supple, Trachea Midline Cardiovascular: Yes: WNL, Regular Rate and Rhythm Breast(s): Yes: WNL - Abdominal Exam/OB Fundal Height: 38 Number of Fetuses: Single Presentation: Transverse Contractions: No Intensity: Unaware Monitor Mode: External Heart Rate Location: Midline Category: I Accelerations: Non-Uniform Decelerations: None - Vaginal Exam/OB Vaginal Bleeding: No Speculum Exam: No Dilatation (cm): 0 Effacement (%): 0 Amniotic Membrane Status: Intact Presentation: Transverse/Shoulder Station: -4 - Physical Exam Musculoskeletal: Yes: WNL Extremities: Yes: WNL Edema: Yes Edema: LLE: Trace, RLE: Trace Deep Tendon Reflex Grade: Normal +2 Psychiatric: Yes: WNL Hemorrhage Risk Assessment - Risk Factors Medium Risk Factors: Yes: Prior , uterine surgery,or multiple laparotomies Risk Score: 1 Risk Level: Medium Risk Problem List - Problems (1) with 39 completed weeks gestation Code(s): Z3A.39 - 39 WEEKS GESTATION OF (2) Previous section complicating Code(s): O34.219 - MATERNAL CARE FOR UNSP TYPE SCAR FROM PREVIOUS DEL (3) Transverse lie of fetus Code(s): O32.2XX0 - MATERNAL CARE FOR TRANSVERSE AND OBLIQUE LIE, UNSP Qualifiers: Fetus number: single or unspecified fetus Qualified Code(s): O32.2XX0 - Maternal care for transverse and oblique lie, not applicable or unspecified Assessment/Plan repeat c/s, risks discussed
[2020-01-23] MEDS ORDERED: OXYTOCIN 20 UNITS in 0.9% NS 20 UNIT/1,000 ML INFUS.BAG IV ONE ×2 (08:10→09:11)
[2020-01-23] MEDS ORDERED: morphine SULFATE/PF 0.5 MG/ML (2cc Syringe - QUVA) ONE (08:11)
[2020-01-23] MEDS ORDERED: ePHEDrine SULFATE 50 MG/1 ML AMPULE ONE (08:11)
[2020-01-23] MEDS ORDERED: ceFAZolin SODIUM 1 GM VIAL ONE (08:11)
[2020-01-23] MEDS ORDERED: MIDAZOLAM HCL 2 MG/2 ML SINGLE DOSE VIAL ONE ×2 (08:40→08:59)
[2020-01-23] MEDS ORDERED: PROPOFOL 20 ML ONE (09:01)
[2020-01-23] MEDS ORDERED: LIDOCAINE HCL 1% PRESERVATIVE FREE - 30ML VIAL ONE (09:11)
[2020-01-23 09:34] LABS: CORD BASE EXCESS -1.5 mmol/L (0-2); CORD HCO3 24.6 mmHg (20-29); CORD PCO2 46.3 mmHg (30-78); CORD pH 7.343 (7.14-7.44)
[2020-01-23 09:37] LABS: CORD HCO3 26.9 mmHg (20-29); CORD PCO2 61.2 mmHg (30-78); CORD pH 7.261 (7.14-7.44)
[2020-01-23] MEDS ORDERED: ONDANSETRON 4 MG/2 ML VIAL IVPUSH PRN (09:47)
[2020-01-23] MEDS ORDERED: WITCH HAZEL 50% (TUCKS) 40 PAD/JAR PAD TP PRN (09:48)
[2020-01-23] MEDS ORDERED: diphenhydrAMINE HCL 25 MG CAPSULE (FP) PO PRN (09:48)
[2020-01-23] MEDS ORDERED: BENZOCAINE 20% 57 GM BOTTLE TP PRN (09:48)
[2020-01-23] MEDS ORDERED: BENZOCAINE 28 GM HEMORRHOIDAL OINTMENT PR PRN (09:48)
[2020-01-23] MEDS ORDERED: METHYLERGONOVINE MALEATE 0.2 MG/1 ML AMP IM PRN (09:48)
[2020-01-23] MEDS ORDERED: oxyCODONE HCL 5 MG TABLET PO PRN ×2 (09:48)
[2020-01-23] MEDS ORDERED: ACETAMINOPHEN 1000 MG/100 ML VIAL (NON FORMULARY) IVPB PRN (09:48)
--- NOTE | 2020-01-23 09:53 | OP ---
Operative Note - Note: Operative Date: 01/23/20 Pre-Operative Diagnosis: 39 weeks, previous c/s, transverse lie Operation: repeat lst c/s Findings: live baby girl ,transverse lie, delivered via breech, fooling , clear fluid , fibroid uterus, 01/23 Surgeon: Yosef Ahn Anesthesiologist/HUSBANDRY PERSON: Elder Gonzalez Anesthesia: Spinal Specimens Removed: placenta Estimated Blood Loss (mls): 500 Drains & Tubes with Location: tan Blood Volume Replaced (mls): 0 Operative Report Dictated: Yes
[2020-01-23] MEDS ORDERED: OXYTOCIN 20 UNITS in 0.9% NS 20 UNIT/1,000 ML INFUS.BAG IV SCH (10:00)
[2020-01-23] MEDS: OXYTOCIN 20 UNITS in 0.9% NS 20 UNIT/1,000 ML INFUS.BAG IV SCH (10:00)
[2020-01-23] MEDS: IBUPROFEN 800 MG/8 ML IJ IVPB PRN ×2 (11:29→19:31)
--- NOTE | 2020-01-23 12:22 | OP ---
DATE OF OPERATION: 01/23/2020 PREOPERATIVE DIAGNOSIS: at 39 weeks, previous , transverse lie. POSTOPERATIVE DIAGNOSIS: at 39 weeks, previous , transverse lie. PROCEDURE: Repeat low-segment transverse section. ANESTHESIA: Spinal. ANESTHESIOLOGIST: Elder Gonzalez DO ESTIMATED BLOOD LOSS: 500 mL. FINDINGS: A live baby girl, transverse lie, delivered via footling breech, 9 and 9, clear fluid, and fibroid uterus. OPERATION: Patient was taken to operating room under adequate spinal anesthesia. Abdomen and perineum were prepped and draped. Pfannenstiel abdominal skin incision was made. Abdominal wall was cut layer by layer until peritoneum was exposed and incised. Upon entering abdominal cavity, lower uterine segment was identified and uterovesical fold of peritoneum established. Bladder was pushed down. Baby was in transverse lie. A lower uterine segment transverse incision was made, incision extended laterally with bandage scissors. Amniotic sac was entered, clear fluid. Baby was in transverse lie, which was delivered as a footling breech without any difficulty, 9 and 9. Placenta was delivered manually. Uterine cavity was cleaned of all remaining tissue. Uterus had multiple fibroids. Then uterine incision was closed in 2 layers, 1st layer with 0 Biosyn continuous suture, the 2nd layer with 0 Biosyn imbricating the 1st layer. Bladder flap was closed with 0 Biosyn continuous suture. Both tubes and ovaries were checked and normal, no active bleeding was seen. All the lap pad, sponge, and instrument count were correct. Then peritoneum was closed with 0 Biosyn continuous suture. Muscles were brought together with interrupted suture of 0 Biosyn. Fascia was closed with 0 Biosyn continuous suture, subcutaneous fat with interrupted suture of 0 Biosyn, and the skin was closed with 3-0 Vicryl subcuticular continuous suture. Patient tolerated procedure well, left the OR in good condition. Kludip [id number]
[2020-01-23] MEDS: CEFAZOLIN 1 GM/D5W 1 GM/50 ML BAG IVPB SCH (17:39)
[2020-01-24] MEDS: CEFAZOLIN 1 GM/D5W 1 GM/50 ML BAG IVPB SCH (02:41)
[2020-01-24] MEDS: IBUPROFEN 600 MG TABLET (FP) PO PRN ×4 (03:23→22:05)
[2020-01-24] MEDS: ACETAMINOPHEN 325 MG TABLET (FP) PO PRN ×4 (03:24→22:04)
[2020-01-24] MEDS: IBUPROFEN 800 MG/8 ML IJ IVPB PRN (06:11)
--- NOTE | 2020-01-24 08:26 | PN ---
Post Progress Note - Subjective Subjective: Patient without acute complaints. Tolerating regular diet, without complaints of nausea or vomiting. Ambulating Denies fevers or chills. / pumping Pain well controlled Reyes removed this AM, voiding Denies flatus. Post Day: 1 Type of Delivery: Repeat C/S Vital Signs: Vital Signs Temperature 97.4 F L 01/24/20 06:00 Pulse Rate 85 01/24/20 06:00 Respiratory Rate 20 01/24/20 06:40 Blood Pressure 113/73 01/24/20 06:00 O2 Sat by Pulse Oximetry (%) 96 01/23/20 21:03 Breast Exam: Yes: Soft Uterus: Yes: Fundus Firm Incision: Yes: Dressing dry and intact Abdomen/GI: Yes: Abdomen soft, Abdominal Distention (soft distension), Tolerating PO. No: Passing flatus Lochia: Yes: Rubra Lochia, amount: Moderate Extremities: Yes: Calves non-tender. No: Edema Activity: Ambulating Assessment/Plan 34 yo POD # 1 s/p repeat CD, afebrile, vital signs stable, doing well 1. Continue routine postoperative care. 2. Patient refused CBC 3. Rh positive status, no rhogam indicated. 4. Encourage ambulation and incentive spirometer use 5. Continue oral pain medication 6. Anticipate discharge home postoperative day #3 or #4
[2020-01-24] MEDS: ENOXAPARIN NA (PORCINE) 40 MG/0.4 ML DISP.SYRIN SQ SCH (09:42)
[2020-01-24] MEDS ORDERED: BISACODYL 10 MG SUPP.RECT PR PRN (09:48)
--- NOTE | 2020-01-24 10:36 | PN ---
Progress Note (short form) - Note Progress Note: Post op day#1.S/P C Section under spinal anesthesia with Duramorph une ventful.Patient stable and c/o little pain for which she is on medication.No any anesthesia related problem.Patient Dc from the anesthesia care.
[2020-01-24] MEDS: ELECTROLYTE-148 SOLN 1,000 ML IV SCH (19:31)
[2020-01-24] MEDS: OXYTOCIN 20 UNITS in 0.9% NS 20 UNIT/1,000 ML INFUS.BAG IV SCH (19:31)
[2020-01-25] MEDS: IBUPROFEN 600 MG TABLET (FP) PO PRN ×4 (01:52→15:48)
[2020-01-25] MEDS: ACETAMINOPHEN 325 MG TABLET (FP) PO PRN ×4 (01:54→15:48)
[2020-01-25] MEDS: SIMETHICONE 80 MG TAB.CHEW (FP) PO PRN ×3 (01:55→11:56)
[2020-01-25] MEDS: ENOXAPARIN NA (PORCINE) 40 MG/0.4 ML DISP.SYRIN SQ SCH (09:20)
[2020-01-25 12:21] VITALS: BP 111/72; PULSE 93; TEMP 97.9
--- NOTE | 2020-01-25 14:14 | DS ---
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: Vital Signs Temperature 97.9 F 01/25/20 10:00 Pulse Rate 93 H 01/25/20 10:00 Respiratory Rate 18 01/25/20 10:00 Blood Pressure 111/72 01/25/20 10:00 O2 Sat by Pulse Oximetry (%) 98 01/24/20 22:00 Constitutional: Yes: Well Nourished, No Distress, Calm Eyes: Yes: WNL, Conjunctiva Clear, EOM Intact HENT: Yes: WNL, Atraumatic, Normocephalic Neck: Yes: WNL, Supple, Trachea Midline Cardiovascular: Yes: WNL, Regular Rate and Rhythm Respiratory: Yes: WNL, Regular, CTA Bilaterally Gastrointestinal: Yes: WNL ...Rectal Exam: Yes: WNL Renal/: Yes: WNL ....Post : Yes: Uterus firm, Uterus non-tender, Slight lochia rubra Breast(s): Yes: WNL Musculoskeletal: Yes: WNL Extremities: Yes: WNL Edema: No Integumentary: Yes: WNL Wound/Incision: Yes: Clean/Dry, Well Approximated, Steri Strips Neurological: Yes: WNL, Alert, Oriented ...Motor Strength: WNL Psychiatric: Yes: WNL, Alert, Oriented Delivery - Delivery Section: Repeat, Low Flap Transverse Type of Anesthesia: Spinal Episiotomy/Laceration: None EBL (cc): 500 Delivery, Single - Stages of Labor Date of Delivery: 01/23/20 Time of Delivery: 08:44 Time Placenta Delivered: 08:45 Placenta: Yes: Expressed - Condition of Rn Sane/Dry Chain Offbearer Present: Yes Name: Stephanie Corral Gender: Female Weight: 7 lb 11 oz Total Hours ROM (Hrs/Mins): 3mins - 1 Minute Total Score: 9 5 Minutes Total Score: 9 - [place] Feeding Plan Initial Plan: Elected not to breastfeed exclusively throughout hospitalization Discharge Summary Reason For Visit: REPEAT C/SECTION Current Active Problems with 39 completed weeks gestation (Acute) Previous section complicating (Acute) Transverse lie of fetus (Acute) Procedures: Principal: repeat LST c/s Hospital Course: no complication Plan of Treatment: follow up office 1 week Condition: Good - Instructions Diet, Activity, Other Instructions: regular diet, no intercourse , follow up office 1 week, if fever, pain,heavy vaginal bleeding call md Referrals: Yosef Ahn MD [Staff Physician] - Disposition: HOME - Home Medications Comprehensive Discharge Medication List: Ambulatory Orders Pnv No.95/Ferrous Fum/Folic AC [ Formula] 1 each PO DAILY 01/23/20 Ibuprofen [Motrin -] 600 mg PO QID #28 tablet 01/25/20
--- NOTE | 2020-01-25 16:48 | PN ---
Post Progress Note - Subjective Subjective: Patient without acute complaints. Tolerating regular diet, without complaints of nausea or vomiting. Ambulating Denies fevers or chills. / pumping Pain well controlled Reyes removed this AM, voiding flatus. Post Day: 2 Type of Delivery: Repeat C/S Vital Signs: Vital Signs Temperature 97.9 F 01/25/20 10:00 Pulse Rate 93 H 01/25/20 10:00 Respiratory Rate 18 01/25/20 10:00 Blood Pressure 111/72 01/25/20 10:00 O2 Sat by Pulse Oximetry (%) 98 01/24/20 22:00
[2020-01-25] MEDS ORDERED: SENNOSIDES/DOCUSATE COMBO (SENNA PLUS) TABLET (UD) PO PRN (22:00)
--- NOTE | 2020-01-31 17:38 | PATH ---
Surgical Pathology Report Patient Name: LEANN ALEXANDER Med. Rec. #: [id number] /Age/Gender: 1985 (Age: 34) / F Account: [id number] Location: [facility] OBS/BOTTOM SANDER Taken: 01/23/2020 Received: 01/24/2020 Reported: 01/31/2020 Physicians: Yosef Ahn M.D. Specimen(s) Received PLACENTA Clinical History , 39 weeks Final Diagnosis PLACENTA, SECTION: 391 G THIRD TRIMESTER PLACENTA WITH TRIVASCULAR UMBILICAL CORD AND UNREMARKABLE PLACENTAL MEMBRANES. Electronically Signed Alla Bay M.D. Gross Description The specimen is received fresh labeled placenta and is a 391 gram, 17.5 x 16.5 x 2.7 cm. placenta with attached membranes and umbilical cord. The attached membranes are ramirez, translucent with focal opacities and insert marginally. The umbilical cord measures 8.5 cm. in length and averages 1.2 cm. in diameter. The cord inserts centrally. No true knots or strictures are identified. Cut surface of the umbilical cord reveals 3 vessels. The surface is oleary blue with moderate fibrin deposition and appropriate caliber vessels. The maternal surface is red-brown with focal defects. Sectioning reveals red-brown, spongy parenchyma. No lesions are identified. Leather Stretcher sections are submitted in three cassettes as follows: 1- membrane rolls and umbilical cord; 2-3- full thickness sections of placenta. /01/26/2020 [facility]01/26/2020
== END 2020-01-25 16:30 | disposition home or self-care (01) | DRG 788 ==
LOC: JLDR 06:00 → J3W 11:00
PROVIDERS: ADMIT Obstetrics & Gynecology; ATTEND Obstetrics & Gynecology
PROC: 10D00Z1 Extraction of Products of Conception, Low, Open Approach (ICD-10-PCS; principal; 2020-01-23)
DX: O82 Encounter for cesarean delivery without indication (principal); O32.2XX0 Maternal care for transverse and oblique lie, not applicable or unspecified; O32.8XX0 Maternal care for other malpresentation of fetus, not applicable or unspecified; O34.211 Maternal care for low transverse scar from previous cesarean delivery; O34.13 Maternal care for benign tumor of corpus uteri, third trimester; D25.9 Leiomyoma of uterus, unspecified; Z3A.39 39 weeks gestation of pregnancy; Z37.0 Single live birth
CPT/HCPCS: 36600; 82803; 88307-TC; J0131

== ENCOUNTER 2021-02-16 08:12 | Emergency (ER) | payer OTHER ==
[2021-02-16 08:18] VITALS: BP 111/68; PULSE 74; TEMP 99.6; BMI 25.0
== END 2021-02-16 08:41 | disposition home or self-care (01) ==
LOC: FER 08:12
DX: O9A.211 Injury, poisoning and certain other consequences of external causes complicating pregnancy, first trimester (principal); S93.401A Sprain of unspecified ligament of right ankle, initial encounter; X50.9XXA Other and unspecified overexertion or strenuous movements or postures, initial encounter; Z3A.01 Less than 8 weeks gestation of pregnancy
CPT/HCPCS: 99282-25

== ENCOUNTER 2021-09-16 06:40 | Inpatient (IN) | payer OTHER ==
[2021-09-16] MEDS ORDERED: ELECTROLYTE-148 SOLN 1,000 ML IV SCH (08:00)
[2021-09-16 08:03] VITALS: BMI 32.3
[2021-09-16] MEDS ORDERED: CITRIC ACID/SODIUM CITRATE 30 ML UNIT-DOSE CUP PO ONE (08:30)
[2021-09-16] MEDS ORDERED: morphine SULFATE/PF 1 MG/2 ML (2cc Syringe - QUVA) ONE (08:59)
[2021-09-16] MEDS ORDERED: BUPIVACAINE HCL/PF 0.5% (5MG/ML) 10 ML VIAL ONE (09:05)
[2021-09-16] MEDS ORDERED: HEPARIN NA (PORCINE) 5,000 UNITS/ML 1ML VIAL ONE (09:15)
[2021-09-16] MEDS ORDERED: morphine SULFATE/PF 1 MG/2 ML (2cc Syringe - QUVA) EP ONE (09:33)
[2021-09-16] MEDS ORDERED: ONDANSETRON 4 MG/2 ML VIAL ONE (10:55)
[2021-09-16] MEDS ORDERED: ceFAZolin SODIUM 1 GM VIAL ONE (10:55)
[2021-09-16] MEDS ORDERED: OXYTOCIN 10 UNITS/ML VIAL ONE (10:55)
[2021-09-16] MEDS ORDERED: KETOROLAC TROMETHAMINE 30 MG/1 ML VIAL ONE (10:55)
[2021-09-16 10:59] LABS: CORD BASE EXCESS -2.2 mmol/L (0-2); CORD HCO3 24.2 mmHg (20-29); CORD PCO2 47.8 mmHg (30-78); CORD pH 7.322 (7.14-7.44)
[2021-09-16 11:03] LABS: CORD PCO2 64.9 mmHg (30-78); CORD pH 7.185 (7.14-7.44)
[2021-09-16] MEDS ORDERED: ACETAMINOPHEN 325 MG TABLET (FP) PO PRN (11:30)
[2021-09-16] MEDS ORDERED: METHYLERGONOVINE MALEATE 0.2 MG/1 ML AMP IM PRN (11:30)
[2021-09-16] MEDS ORDERED: IBUPROFEN 600 MG TABLET (FP) PO PRN (11:30)
[2021-09-16] MEDS ORDERED: ACETAMINOPHEN 1000 MG/100 ML BAG IVPB PRN ×2 (11:32→17:50)
[2021-09-16] MEDS ORDERED: ONDANSETRON 4 MG/2 ML VIAL IVPUSH PRN (11:51)
[2021-09-16] MEDS ORDERED: ACETAMINOPHEN 1000 MG/100 ML BAG IVPB ONE (11:54)
[2021-09-16] MEDS: OXYTOCIN 20 UNITS in 0.9% NS 20 UNIT/1,000 ML INFUS.BAG IV SCH (12:00)
[2021-09-16] MEDS ORDERED: IBUPROFEN 800 MG/8 ML IJ IVPB ONE (13:50)
[2021-09-16] MEDS: IBUPROFEN 800 MG/8 ML IJ IVPB PRN ×2 (14:00→20:22)
[2021-09-16 15:07] LABS: BASO % 0.2 % (0-2.0); EOS % 0.8 % (0-4.5); HEMATOCRIT 38.7 % (32.4-45.2); HEMOGLOBIN 12.7 GM/dL (10.7-15.3); LYMPH % 8.1 % (8-40); MCH 29.9 pg (25.7-33.7); MCHC 32.9 g/dl (32.0-36.0); MEAN CELL VOLUME 90.9 fl (80-96); MEAN PLT VOLUME 10.2 fl (7.5-11.1); MONO % 5.2 % (3.8-10.2); NEUT % 85.7 % (42.8-82.8); PLATELET COUNT 165 10^3/uL (134-434); RBC 4.26 M/mm3 (3.60-5.2); RDW 13.4 % (11.6-15.6); WHITE BLOOD COUNT 12.4 K/mm3 (4.0-10.0)
[2021-09-16] MEDS ORDERED: ceFAZolin 2 GRAM PREMIX BAG IVPB SCH (18:00)
[2021-09-16] MEDS: CEFAZOLIN 2 GM in DEXTROSE 5%-WATER 100 ML IVPB SCH (18:35)
[2021-09-17] MEDS: oxyCODONE HCL 5 MG TABLET PO PRN ×5 (02:32→20:25)
[2021-09-17] MEDS: CEFAZOLIN 2 GM in DEXTROSE 5%-WATER 100 ML IVPB SCH ×2 (02:48→10:55)
[2021-09-17] MEDS: SIMETHICONE 80 MG TAB.CHEW (FP) PO PRN ×4 (06:29→20:24)
[2021-09-17] MEDS: ENOXAPARIN NA (PORCINE) 40 MG/0.4 ML DISP.SYRIN SQ SCH (10:56)
[2021-09-17] MEDS ORDERED: BISACODYL 10 MG SUPP.RECT RC PRN (11:31)
[2021-09-18] MEDS: oxyCODONE HCL 5 MG TABLET PO PRN ×4 (02:16→20:38)
[2021-09-18] MEDS: SIMETHICONE 80 MG TAB.CHEW (FP) PO PRN ×5 (02:17→20:37)
[2021-09-18] MEDS: OXYTOCIN 20 UNITS in 0.9% NS 20 UNIT/1,000 ML INFUS.BAG IV SCH (02:18)
[2021-09-18] MEDS: ENOXAPARIN NA (PORCINE) 40 MG/0.4 ML DISP.SYRIN SQ SCH (09:30)
[2021-09-18 09:32] LABS: BASO % 0.4 % (0-2.0); HEMATOCRIT 30.2 % (32.4-45.2); HEMOGLOBIN 10.2 GM/dL (10.7-15.3); LYMPH % 10.6 % (8-40); MCH 30.3 pg (25.7-33.7); MCHC 33.7 g/dl (32.0-36.0); MONO % 8.3 % (3.8-10.2); NEUT % 79.7 % (42.8-82.8); PLATELET COUNT 160 10^3/uL (134-434); RBC 3.36 M/mm3 (3.60-5.2); RDW 13.7 % (11.6-15.6)
[2021-09-19] MEDS: oxyCODONE HCL 5 MG TABLET PO PRN ×2 (07:33→14:30)
[2021-09-19 10:07] LABS: BASO % 0.5 % (0-2.0); EOS % 2.2 % (0-4.5); HEMATOCRIT 32.2 % (32.4-45.2); HEMOGLOBIN 10.9 GM/dL (10.7-15.3); MCH 30.7 pg (25.7-33.7); MEAN CELL VOLUME 90.3 fl (80-96); MEAN PLT VOLUME 9.2 fl (7.5-11.1); MONO % 7.6 % (3.8-10.2); NEUT % 79.7 % (42.8-82.8); PLATELET COUNT 184 10^3/uL (134-434); RBC 3.56 M/mm3 (3.60-5.2); RDW 13.6 % (11.6-15.6); WHITE BLOOD COUNT 9.1 K/mm3 (4.0-10.0)
[2021-09-19] MEDS: ENOXAPARIN NA (PORCINE) 40 MG/0.4 ML DISP.SYRIN SQ SCH (10:54)
[2021-09-19 14:46] VITALS: BP 103/64; PULSE 97; TEMP 98.9
== END 2021-09-19 17:11 | disposition home or self-care (01) | DRG 540 ==
LOC: JLDR 06:40 → J3W 15:34
PROVIDERS: ADMIT Obstetrics & Gynecology; ATTEND Obstetrics & Gynecology
PROC: 10D00Z0 Extraction of Products of Conception, High, Open Approach (ICD-10-PCS; principal; 2021-09-16)
DX: O45.93 Premature separation of placenta, unspecified, third trimester (principal); O44.03 Complete placenta previa NOS or without hemorrhage, third trimester; O34.211 Maternal care for low transverse scar from previous cesarean delivery; Z3A.37 37 weeks gestation of pregnancy; Z37.0 Single live birth
CPT/HCPCS: 36415; 36600; 82803; 85025; 87340; 88307-TC; J1644

== ENCOUNTER 2021-10-22 15:34 | Inpatient (IN) | payer OTHER ==
[2021-10-22 15:56] VITALS: BMI 26.6
[2021-10-22] MEDS ORDERED: ACETAMINOPHEN 500 MG TABLET (FP) PO ONE (16:48)
[2021-10-22] MEDS ORDERED: IBUPROFEN 200 MG TABLET PO ONE (16:52)
[2021-10-22] MEDS ORDERED: ACETAMINOPHEN 325 MG TABLET (FP) PO ONE (16:57)
[2021-10-22] MEDS ORDERED: ACETAMINOPHEN 325 MG TABLET (FP) ONE (17:03)
[2021-10-22] MEDS ORDERED: morphine CARPU-JECT 2 MG/1 ML DISP.SYRIN IVPUSH ONE (18:31)
[2021-10-22] MEDS ORDERED: SODIUM CHLORIDE 0.9% 500 ML INFUS.BAG IV ONE (18:32)
[2021-10-22 19:29] LABS: HEMATOCRIT 37.5 % (32.4-45.2); HEMOGLOBIN 12.4 GM/dL (10.7-15.3); MCH 29.6 pg (25.7-33.7); MCHC 33.1 g/dl (32.0-36.0); MEAN CELL VOLUME 89.6 fl (80-96); MEAN PLT VOLUME 9.5 fl (7.5-11.1); PLATELET COUNT 200 10^3/uL (134-434); RBC 4.18 M/mm3 (3.60-5.2); RDW 13.7 % (11.6-15.6); WHITE BLOOD COUNT 9.9 K/mm3 (4.0-10.0)
[2021-10-22 19:35] LABS: INR 1.37 (0.83-1.09); PROTHROMBIN TIME (PATIENT) 15.8 SEC (9.7-13.0)
[2021-10-22 19:37] LABS: ACTIVATED PTT 27.5 SECONDS (25.2-36.5)
[2021-10-22] MEDS ORDERED: morphine SULFATE 4 MG/ML VIAL ONE (19:38)
[2021-10-22 19:49] LABS: ALBUMIN 3.1 g/dl (3.4-5.0); CALCIUM 8.5 mg/dL (8.5-10.1)
[2021-10-22 19:50] LABS: BLOOD UREA NITROGEN 8.1 mg/dL (7-18)
[2021-10-22 19:53] LABS: CREATININE 0.6 mg/dL (0.55-1.3)
[2021-10-22 19:54] LABS: BILIRUBIN,TOTAL 0.4 mg/dL (0.2-1); TOT PROT 7.2 g/dl (6.4-8.2)
[2021-10-22 19:56] LABS: ANISOCYTOSIS 0; HELMET CELLS 0; HOWELL-JOLLY BODIES 0; MACROCYTOSIS 0; OVALOCYTE 0; ROULEAU 0; SICKELED CELLS 0; TARGET CELLS 0; TEAR DROP CELLS 0; TOXIC GRANULATION 0
[2021-10-22 22:37] LABS: EPI CELLS >36 /uL (0-25.1); HYALINE CASTS 3 /uL (0-3.1); PH,URINE 6.5 (5.0-8.0); URINE APPEARANCE CLOUDY; URINE BACTERIA 486 /uL (0-1359); URINE BILIRUBIN NEGATIVE (NEGATIVE); URINE COLOR YELLOW; URINE GLUCOSE (UA) NEGATIVE (NEGATIVE); URINE KETONE NEGATIVE (NEGATIVE); URINE LEUK ESTERASE NEGATIVE (NEGATIVE); URINE NITRITE NEGATIVE (NEGATIVE); URINE PROTEIN NEGATIVE (NEGATIVE); URINE RBC 5 /uL (0-23.9); URINE UROBILINOGEN 0.2 mg/dL (0.2-1.0); URINE WBC 5 /uL (0-25.8)
[2021-10-22] MEDS ORDERED: IBUPROFEN 400 MG TABLET (FP) PO ONE (22:37)
[2021-10-22 22:38] LABS: HCG,QUALITATIVE URINE Negative
[2021-10-22] MEDS ORDERED: IBUPROFEN 600 MG TABLET (FP) PO ONE (22:40)
[2021-10-22] MEDS ORDERED: DEXTROSE 5%-LACTATED RINGERS 1,000 ML IV SCH (23:45)
[2021-10-22] MEDS ORDERED: ACETAMINOPHEN 325 MG TABLET (FP) PO PRN (23:48)
[2021-10-22] MEDS ORDERED: DOXYCYCLINE INJECTION 100 MG in DEXTROSE 5%-WATER 100 ML IVPB ONE (23:48)
[2021-10-22] MEDS ORDERED: ACETAMINOPHEN 1000 MG/100 ML BAG IVPB ONE (23:48)
[2021-10-22] MEDS ORDERED: FAMOTIDINE 20 MG TABLET PO PRN (23:49)
[2021-10-23] MEDS ORDERED: ACETAMINOPHEN INJECTION 100 ML IVPB ONE (00:09)
[2021-10-23] MEDS ORDERED: ceFAZolin SODIUM 1 GM VIAL ONE ×3 (02:26→17:29)
[2021-10-23] MEDS: CEFAZOLIN 1 GM in DEXTROSE 5%-WATER - 50 ML IVPB SCH ×3 (02:30→18:15)
[2021-10-23] MEDS ORDERED: DOXYCYCLINE HYCLATE 100 MG VIAL ONE (04:12)
[2021-10-23] MEDS ORDERED: SODIUM CHLORIDE 0.9% 500 ML INFUS.BAG IV ONE (04:32)
[2021-10-23 09:23] LABS: HEMOGLOBIN 11.9 GM/dL (10.7-15.3); MCH 29.5 pg (25.7-33.7); MCHC 33.1 g/dl (32.0-36.0); MEAN CELL VOLUME 88.9 fl (80-96); MEAN PLT VOLUME 8.7 fl (7.5-11.1); PLATELET COUNT 184 10^3/uL (134-434); RBC 4.05 M/mm3 (3.60-5.2); RDW 13.7 % (11.6-15.6); WHITE BLOOD COUNT 8.1 K/mm3 (4.0-10.0)
[2021-10-23] MEDS ORDERED: DEXTROSE 5%-WATER - 50 ML IVPB ONE ×2 (09:33→17:29)
[2021-10-23] MEDS: DOCUSATE SODIUM 100 MG CAPSULE (FP) PO SCH (09:48)
[2021-10-23] MEDS: oxyCODONE HCL 5 MG TABLET PO PRN (10:48)
[2021-10-23] MEDS: IBUPROFEN 800 MG/8 ML IJ IVPB PRN (13:15)
[2021-10-23 16:10] LABS: CALCIUM 8.2 mg/dL (8.5-10.1)
[2021-10-23 16:11] LABS: ALBUMIN 2.5 g/dl (3.4-5.0); BLOOD UREA NITROGEN 6.6 mg/dL (7-18)
[2021-10-23 16:14] LABS: CREATININE 0.5 mg/dL (0.55-1.3)
[2021-10-23 16:16] LABS: BILIRUBIN,TOTAL 0.9 mg/dL (0.2-1)
[2021-10-24] MEDS ORDERED: ceFAZolin SODIUM 1 GM VIAL ONE ×2 (00:36→09:22)
[2021-10-24] MEDS ORDERED: DEXTROSE 5%-WATER - 50 ML IVPB ONE ×2 (00:36→09:22)
[2021-10-24] MEDS: CEFAZOLIN 1 GM in DEXTROSE 5%-WATER - 50 ML IVPB SCH ×2 (02:01→10:16)
[2021-10-24] MEDS: oxyCODONE HCL 5 MG TABLET PO PRN (03:18)
[2021-10-24] MEDS: IBUPROFEN 800 MG/8 ML IJ IVPB PRN (07:26)
[2021-10-24] MEDS: DOCUSATE SODIUM 100 MG CAPSULE (FP) PO SCH (10:16)
[2021-10-24] MEDS ORDERED: ACETAMINOPHEN 325 MG TABLET (FP) PO PRN (14:35)
[2021-10-24 15:31] VITALS: BP 108/71; PULSE 83; TEMP 98.2
== END 2021-10-24 15:30 | disposition home or self-care (01) | DRG 561 ==
LOC: JER 15:34 → JERBED 23:47 → J3W 10-23 05:05
PROVIDERS: ADMIT Obstetrics & Gynecology; ATTEND Obstetrics & Gynecology
DX: O99.893 Other specified diseases and conditions complicating puerperium (principal); O86.12 Endometritis following delivery
CPT/HCPCS: 0241U-QW; 36415; 74177-TC; 80053; 81003; 83605; 84703; 85025; 85027; 85610; 85730; 86850; 86900; 86901; 87040; 87086; 93005; 93010; 99285-25; Q9967